=== PATIENT | male | born 1980 | race Caucasian/White ===

== ENCOUNTER 2023-12-28 13:17 | Emergency (ER) | payer BC, OTHER, SELFPAY ==
[2023-12-28 13:44] LABS: #Basophils 0.1 thou/uL (0.0-0.2); #Lymphocytes 1.5 thou/uL (1.20-3.40); #Monocytes 0.4 thou/uL (0.11-0.59); #Neutrophils 4.3 thou/uL (1.40-6.50); %Basophils 0.8 % (0.0-1.0); %Eosinophils 0.6 % (0.0-10.0); %Lymphocytes 23.4 % (21.0-51.0); %Monocytes 5.7 % (0.0-10.0); %Neutrophils 69.5 % (42.0-75.0); Hematocrit 40.8 % (42.0-52.0); Hemoglobin 14.3 g/dL (14.0-18.0); Mean Corpuscular HGB CONC 35.1 g/dL (32.0-36.0); Mean Corpuscular Volume 88.3 fl (78.0-98.0); Mean Platelet Volume 7.4 fL (7.4-10.4); Platelet Count 180 10x3/uL (130-400); RBC Distribution Width 11.7 % (11.5-14.5); Red Blood Cell (RBC) Count 4.62 mill/uL (4.70-6.10); White Blood Cell (WBC) Count 6.2 10x3/uL (4.8-10.8)
[2023-12-28 13:56] LABS: ALT (SGPT) 31 U/L (8-55); AST (SGOT) 23 U/L (5-34); Albumin 4.8 g/dL (3.5-5.0); Alkaline Phosphatase 37 U/L (40-110); Anion Gap 16 mmol/L (10-20); BUN (Urea Nitrogen) 15 mg/dL (8.9-20.6); Bilirubin, Total 0.5 mg/dL (0.2-1.2); Calc. Creatinine Clearance 0 mL/min (70-130); Carbon Dioxide 19 mmol/L (22-29); Chloride 107 mmol/L (98-107); Estimated GFR 108; Globulin 2.4 g/dL (2.4-3.5); Glucose 133 mg/dL (70-105); Magnesium 1.8 mg/dL (1.6-2.6); Potassium 3.3 mmol/L (3.5-5.1); Protein, Total 7.2 g/dL (6.0-8.3); Sodium 139 mmol/L (136-145); Troponin I Less than 0.010 ng/mL (< 0.028)
[2023-12-28] MEDS ORDERED: Potassium Chloride 20 MEQ TAB ONE ×2 (14:04→14:07)
[2023-12-28] MEDS ORDERED: Magnesium 2 GM/50 ML BAG (IN WATER) ONE (14:05)
[2023-12-28 15:05] LABS: Bilirubin Negative (Negative); Blood, Urine Negative (Negative); Clarity Clear (Clear); Glucose, Urine (Dipstick) Negative (Negative); Ketone, Urine Negative (Negative); Leukocyte Negative (Negative); Nitrite Negative (Negative); Protein, Urine (Dipstick) Negative (Neg-Trace); Specific Gravity, Urine 1.015 (1.005-1.030); Urobilinogen 0.2 mg/dL (Less than 2)
[2023-12-28 15:12] LABS: Bacteria/HPF 1+ HPF (None Seen); CAUTI Indications for Culture Dysuria,urgency,freq; RBC/HPF 0-3 HPF (0-3); Squamous Epithelial 0-3 HPF (0-3); WBC/HPF 0-3 HPF (0-3)
[2023-12-28 15:13] LABS: Urine Culture Reflex No No
== END 2023-12-28 15:41 | disposition home or self-care (01) ==
LOC: BURERS 13:17
DX: E87.6 Hypokalemia (principal); R53.1 Weakness; I10 Essential (primary) hypertension; K21.9 Gastro-esophageal reflux disease without esophagitis; F17.210 Nicotine dependence, cigarettes, uncomplicated; Z55.6 Problems related to health literacy
CPT/HCPCS: 70450; 71045; 80053; 81001; 83735; 84484; 85025; 85379; 93005; 96365; J3475